=== PATIENT | female | born 1980 | race Caucasian/White ===

== ENCOUNTER → 2017-02-24 | Outpatient (CLI) | payer MEDICAID ==
[~2017-02-24] MED LIST: ADDERALL 30 MG30 MG PO; DOXYCYCLINE100 MG PO; FLAGYL500 MG PO; FLORASTOR250 MG PO; NORCO 5-325 MG1 TAB PO; SINGULAIR10 MG PO
[2017-02-24 16:27] LABS: BASOPHIL % 0.3 %; EOSINOPHIL # 0.3 K/uL (0.0-0.5); EOSINOPHIL % 2.6 %; HEMATOCRIT 40.1 % (33.0-46.0); HEMOGLOBIN 13.5 g/dL (11.0-15.0); IMMATURE GRANULOCYTE % 0.2 %; LYMPHOCYTE # 2.1 K/uL (0.8-4.0); LYMPHOCYTE % 20.9 %; MCH 32.9 pg (27.0-34.0); MCHC 33.7 gm/dL (32.0-36.5); MCV 97.8 fl (83.0-98.0); MONOCYTE # 0.6 K/uL (0.0-1.0); MONOCYTE % 6.1 %; MPV 11.6 fl (9.4-12.4); NEUTROPHIL # (ANC) 6.9 K/uL (1.8-7.8); NEUTROPHIL % 69.9 %; NRBC % 0 /100WBC (0-0.00); PLATELET COUNT 212 K/uL (150-450); RDW-CV 12.5 % (11.9-14.6); WBC 9.9 K/uL (4.0-11.0)
== END | disposition disaster alternative care site (69) ==
LOC: LFPA 16:11
PROVIDERS: Family Medicine
DX: Z34.81 Encounter for supervision of other normal pregnancy, first trimester (principal)